=== PATIENT | female | born 1965 | race African-American/Black ===

== ENCOUNTER 2018-06-14 11:01 | Emergency (ER) | payer MEDICAID ==
[~2018-06-14] VITALS: Ht 160 cm; Wt 116.6 kg
[2018-06-14 11:20] VITALS: BP 141/88
== END 2018-06-14 12:30 | disposition home or self-care (01) ==
LOC: ER 11:01
DX: M25.512 Pain in left shoulder (principal); I10 Essential (primary) hypertension; Z98.890 Other specified postprocedural states
CPT/HCPCS: 99281; A4565

== ENCOUNTER 2018-11-22 11:21 | Emergency (ER) | payer MEDICAID ==
[~2018-11-22] VITALS: Ht 160 cm; Wt 109.0 kg
[2018-11-22] MEDS ORDERED: ACETAMINOPHEN 325MG TABLET PO ONE (15:30)
[2018-11-22 16:32] VITALS: BP 125/78
== END 2018-11-22 16:36 | disposition home or self-care (01) ==
LOC: ER 11:21
DX: J20.9 Acute bronchitis, unspecified (principal); I10 Essential (primary) hypertension; Z98.890 Other specified postprocedural states
CPT/HCPCS: 71045; 99283